=== PATIENT | female | born 1985 | race Caucasian/White ===

== ENCOUNTER 2025-01-16 13:09 | Emergency (ER) | payer OTHER, SELFPAY ==
--- NOTE | 2025-01-16 13:12 | ED.URI ---
HPI - URI/Sore Throat General Chief Complaint: Upper Respiratory Infection Stated Complaint: Sinus sx/cough Time Seen by Provider: 01/16/25 13:12 Source: patient Mode of arrival: ambulatory Limitations: no limitations History of Present Illness HPI Narrative: Deneen is a 39-year-old female patient presenting to the clinic today with complaints of sinus congestion, sinus pressure, and cough x4 weeks. She reports she was seen on January 03 and diagnosed with acute bacterial sinusitis and given prescription for Augmentin. She reports she took all the antibiotics and she felt better for 2 days in her symptoms return. Is blowing out/coughing up yellowish brown phlegm. She contacted her PCP and they placed her on azithromycin. States that her symptoms seem to be worsening while taking the azithromycin. She denies any fevers, chills, body aches. Related Data Allergies Allergy/AdvReac Type Severity Reaction Status Date / Time No Known Drug Allergies Allergy Unknown N/A Verified 01/16/25 13:27 Review of Systems Review of Systems: Pertinent positives per HPI. Patient denies any fever, chills, rash, visual changes, dizziness, shortness of breath, chest pain, palpitations, nausea, vomiting, diarrhea, constipation, abdominal pain, or any urinary issues. [facility] Past Medical History Medical History BMI 33.0-33.9,adult Family History Family History Grandparent Acute myocardial infarction Heart disease Hypertension Malignant neoplasm of prostate Father Hypertension Sibling Hypertension Mother No problems noted. 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 There is no relevant family history pertinent to the patient complaint. Exam Narrative: General: Well-developed, obese, in no apparent distress Head: Normocephalic, atraumatic Eyes: Pupils equally round and reactive to light bilaterally, EOM intact, sclera and conjunctive clear, no discharge, lids normal Ears: TMs intact and congested, ear canals clear, no drainage, grossly hearing normal. Nose: Nares patent, yellow nasal discharge, moderate inflammation, maxillary and frontal sinus tenderness. Mouth: Oropharynx red without lesions or masses, good dentition, MMM. Postnasal drip Neck: Supple, trachea midline, no enlargement of anterior or posterior cervical nodes, no thyroid masses or goiter palpable. Cardio: Regular rate and rhythm, s1 and s2 normal, no murmur appreciated. Resp: Clear to auscultation bilaterally anteriorly and posteriorly, no rhonchi, rales, wheezing or rubs Course Course Emergency Course: Portions of this record may have been created with voice recognition software. Level of Care: Express Care Visit Vital Signs Vital signs: Vital Signs Temperature 36.1 C L 01/16/25 13:22 Pulse Rate 96 01/16/25 13:22 Respiratory Rate 16 01/16/25 13:22 Blood Pressure 149/89 H 01/16/25 13:22 Pulse Oximetry 100 01/16/25 13:22 Oxygen Delivery Room Air 01/16/25 13:22 Temperature 36.1 C L 01/16/25 13:22 Pulse Rate 96 01/16/25 13:22 Respiratory Rate 16 01/16/25 13:22 Blood Pressure 149/89 H 01/16/25 13:22 Pulse Oximetry 100 01/16/25 13:22 Oxygen Delivery Room Air 01/16/25 13:22 Vital signs reviewed MDM - URI/Sore Throat MDM Narrative Medical decision making narrative: At the time of visit patient is resting comfortably on the exam table. Patient appears to be nontoxic. Complaints of sinus congestion, sinus pressure, and cough x4 weeks. She reports she was seen on January 03 and diagnosed with acute bacterial sinusitis and given prescription for Augmentin. She reports she took all the antibiotics and she felt better for 2 days in her symptoms return. She contacted her PCP and they placed her on azithromycin. States that her symptoms seem to be worsening while taking the azithromycin. She denies any fevers, chills, body aches. On exam patient has of TMs intact and congestion, yellow nasal drainage, moderate anterior turbinate inflammation, tenderness to palpation over the maxillary sinus and frontal sinuses, heart rates regular rate and rhythm, lung sounds are clear. Plan: I suspect patient has acute bacterial rhinosinusitis. Will have patient stop azithromycin and start doxycycline, prednisone, and prescription was given for Tessalon Perles. Supportive measures were discussed with the patient and they voiced understanding discharge instructions and agrees to treatment plan. Return precautions reviewed Differential Diagnosis Differential diagnosis: Likely upper respiratory infection, otitis media, sinusitis, viral infection, bronchitis, influenza and pharyngitis Discharge Plan Discharge Clinical Impression: Acute bacterial rhinosinusitis Patient Disposition: Home Condition: Stable Instructions: Antibiotic Form, Rhinosinusitis (ED) Additional Instructions: Take prescription medications only as prescribed-Tessalon Perles, prednisone, and doxycycline Increase fluids and stay well hydrated May take Tylenol or motrin as directed on bottle for pain/fever May use Flonase 1 spray in each nare daily May take OTC antihistamines such as Zyrtec or Claritin daily as directed on bottle May apply Vicks vapor rub to chest to open sinuses Sinus rinses for congestion Cepacol spray, cough drops, throat lozenges, warm tea with honey/lemon, gargle salt water to soothe throat BRAT diet for diarrhea Clear liquids x 24 hours then advance as tolerated for nausea/vomiting Go to the ED if you develop a worsening in your condition- high fever not controlled by Tylenol or Motrin, dehydration, weakness, lethargy, shortness of breath, or chest pain. Follow up with your PCP in 3-5 days if symptoms persist. Patient Language: Serbian Prescriptions: New doxycycline monohydrate 100 mg capsule 100 mg PO BID 10 Days Qty: 20 0RF prednisone 20 mg tablet 40 mg PO DAILY 5 Days Qty: 10 0RF benzonatate 200 mg capsule 200 mg PO TID 7 Days Qty: 21 0RF No Action phentermine 37.5 mg tablet 37.5 mg PO DAILY Qty: 30 3RF Rx Instructions: must administer 30 minutes before or 1-2 hours after breakfast bupropion HCl 150 mg tablet extended release 24 hr 150 mg PO DAILY Qty: 90 2RF buspirone 10 mg tablet 10 mg PO BID Qty: 60 5RF azithromycin 250 mg tablet See Rx Instructions PO .COMPLEX Qty: 6 0RF Rx Instructions: For 250 mg dose pack: take 500 mg today (day 1), then 250 mg for 4 days (days 2-5) PO Follow-up/Referrals: Tho Fuentes MD [Primary Care Provider, [facility]] Time of Disposition: 13:38 Quality NIHSS Nursing Documentation ED NIHSS nursing documentation: reviewed/agree
[2025-01-16 13:22] VITALS: BP 149/89; PULSE 96; RESP 16; TEMP 36.1; O2SAT 100
== END 2025-01-16 13:44 | disposition home or self-care (01) ==
PROVIDERS: Emergency Provider Nurse Practitioner Family; PCP Family Medicine Adolescent Medicine
DX: J01.90 Acute sinusitis, unspecified (principal)
CPT/HCPCS: 99213; G0463